=== PATIENT | female | born 2000 | race Caucasian/White ===

== ENCOUNTER 2021-08-21 16:11 | Emergency (ER) | payer OTHER ==
[2021-08-21 16:28] VITALS: BP 127/74; PULSE 95; TEMP 98.1; BMI 34.1
[2021-08-21 19:18] LABS: EPI CELLS 24 /uL (0-25.1); HYALINE CASTS 2 /uL (0-3.1); URINE APPEARANCE Error; URINE BACTERIA 129 /uL (0-1359); URINE BILIRUBIN NEGATIVE (NEGATIVE); URINE COLOR YELLOW; URINE GLUCOSE (UA) NEGATIVE (NEGATIVE); URINE KETONE TRACE (NEGATIVE); URINE LEUK ESTERASE TRACE (NEGATIVE); URINE NITRITE NEGATIVE (NEGATIVE); URINE PROTEIN 1+ (NEGATIVE); URINE RBC 1352 /uL (0-23.9); URINE WBC 40 /uL (0-25.8)
[2021-08-21 19:21] LABS: INR 1.05 (0.83-1.09); PROTHROMBIN TIME (PATIENT) 12.7 SEC (9.7-13.0)
[2021-08-21 19:24] LABS: ACTIVATED PTT 32.6 SECONDS (25.2-36.5)
[2021-08-21 19:39] LABS: CALCIUM 9.1 mg/dL (8.5-10.1)
[2021-08-21 19:40] LABS: ALBUMIN 3.7 g/dl (3.4-5.0); BLOOD UREA NITROGEN 11.6 mg/dL (7-18)
[2021-08-21 19:43] LABS: BASO % 0.7 % (0-2.0); CREATININE 0.7 mg/dL (0.55-1.3); EOS % 0.4 % (0-4.5); HEMATOCRIT 40.8 % (32.4-45.2); HEMOGLOBIN 13.6 GM/dL (10.7-15.3); LYMPH % 13.3 % (8-40); MCH 28.3 pg (25.7-33.7); MCHC 33.4 g/dl (32.0-36.0); MEAN CELL VOLUME 84.7 fl (80-96); MEAN PLT VOLUME 8.8 fl (7.5-11.1); MONO % 4.2 % (3.8-10.2); NEUT % 81.4 % (42.8-82.8); PLATELET COUNT 287 10^3/uL (134-434); RBC 4.82 M/mm3 (3.60-5.2); RDW 13.8 % (11.6-15.6)
[2021-08-21 19:45] LABS: BILIRUBIN,TOTAL 0.7 mg/dL (0.2-1); TOT PROT 7.5 g/dl (6.4-8.2)
[2021-08-21] MEDS ORDERED: IBUPROFEN 600 MG TABLET (FP) PO ONE ×2 (20:30→20:32)
== END 2021-08-21 22:11 | disposition home or self-care (01) ==
LOC: JER 16:11
DX: N94.6 Dysmenorrhea, unspecified (principal)
CPT/HCPCS: 36415; 76830-TC; 80053; 81003; 84703; 85025; 85610; 85730; 86850; 86900; 86901; 99284-25

== ENCOUNTER 2021-10-23 10:26 | Emergency (ER) | payer OTHER ==
[2021-10-23 10:50] VITALS: BP 114/75; PULSE 90; TEMP 98; BMI 34.0
== END 2021-10-23 14:06 | disposition home or self-care (01) ==
LOC: JER 10:26
DX: R05.1 Acute cough (principal); R09.81 Nasal congestion; J06.9 Acute upper respiratory infection, unspecified; Z11.52 Encounter for screening for COVID-19
CPT/HCPCS: 71046-TC-FY; 87651; 87804; 99284-25; C9803; U0003; U0005

== ENCOUNTER 2022-04-05 14:12 | Emergency (ER) | payer OTHER ==
[2022-04-05 14:54] VITALS: BP 101/62; PULSE 110; TEMP 98.2; BMI 36.8
[2022-04-05 16:09] LABS: HCG,QUALITATIVE URINE Positive
[2022-04-05 16:13] LABS: EPI CELLS >36 /uL (0-25.1); HYALINE CASTS 0 /uL (0-3.1); URINE APPEARANCE CLEAR; URINE BACTERIA 1333 /uL (0-1359); URINE BILIRUBIN NEGATIVE (NEGATIVE); URINE COLOR YELLOW; URINE GLUCOSE (UA) NEGATIVE (NEGATIVE); URINE KETONE TRACE (NEGATIVE); URINE LEUK ESTERASE TRACE (NEGATIVE); URINE NITRITE NEGATIVE (NEGATIVE); URINE PROTEIN TRACE (NEGATIVE); URINE RBC 10 /uL (0-23.9); URINE WBC 31 /uL (0-25.8)
[2022-04-05 17:29] LABS: BASO % 0.8 % (0-2.0); HEMATOCRIT 39.5 % (32.4-45.2); HEMOGLOBIN 12.9 GM/dL (10.7-15.3); LYMPH % 15.9 % (8-40); MCH 28.2 pg (25.7-33.7); MCHC 32.8 g/dl (32.0-36.0); MEAN CELL VOLUME 86.2 fl (80-96); MEAN PLT VOLUME 9.2 fl (7.5-11.1); MONO % 6.6 % (3.8-10.2); NEUT % 72.7 % (42.8-82.8); PLATELET COUNT 236 10^3/uL (134-434); RBC 4.58 M/mm3 (3.60-5.2); RDW 14.4 % (11.6-15.6); WHITE BLOOD COUNT 8.7 K/mm3 (4.0-10.0)
[2022-04-05 17:44] LABS: ALBUMIN 3.2 g/dl (3.4-5.0); BLOOD UREA NITROGEN 10.6 mg/dL (7-18); CALCIUM 8.7 mg/dL (8.5-10.1)
[2022-04-05 17:47] LABS: CREATININE 0.6 mg/dL (0.55-1.3)
[2022-04-05 17:49] LABS: BILIRUBIN,TOTAL 0.4 mg/dL (0.2-1); TOT PROT 6.3 g/dl (6.4-8.2)
== END 2022-04-05 19:09 | disposition home or self-care (01) ==
LOC: JER 14:12
DX: O23.91 Unspecified genitourinary tract infection in pregnancy, first trimester (principal); O20.0 Threatened abortion; Z3A.01 Less than 8 weeks gestation of pregnancy
CPT/HCPCS: 36415; 76817-TC; 80053; 81003; 84702; 84703; 85025; 86850; 86900; 86901; 87070; 87086; 87205; 99284-25

== ENCOUNTER 2022-05-16 16:09 | Emergency (ER) | payer OTHER ==
[2022-05-16 16:17] VITALS: BP 113/76; PULSE 90; TEMP 98.6; BMI 36.0
[2022-05-16] MEDS ORDERED: ACETAMINOPHEN 500 MG TABLET (FP) PO ONE (17:03)
[2022-05-16 18:03] LABS: BASO % 0.6 % (0-2.0); EOS % 3.6 % (0-4.5); HEMATOCRIT 39.6 % (32.4-45.2); HEMOGLOBIN 13.8 GM/dL (10.7-15.3); LYMPH % 24.2 % (8-40); MCH 29.3 pg (25.7-33.7); MCHC 34.9 g/dl (32.0-36.0); MEAN CELL VOLUME 83.9 fl (80-96); MEAN PLT VOLUME 8.6 fl (7.5-11.1); MONO % 6.6 % (3.8-10.2); PLATELET COUNT 239 10^3/uL (134-434); RBC 4.72 M/mm3 (3.60-5.2); RDW 14.7 % (11.6-15.6); WHITE BLOOD COUNT 7.5 K/mm3 (4.0-10.0)
[2022-05-16 18:13] LABS: INR 1.1 (0.83-1.09); PROTHROMBIN TIME (PATIENT) 12.7 SEC (9.7-13.0)
[2022-05-16] MEDS ORDERED: ACETAMINOPHEN 500 MG TABLET (FP) ONE (19:19)
[2022-05-16 19:22] LABS: EPI CELLS 16 /uL (0-25.1); HYALINE CASTS 1 /uL (0-3.1); URINE APPEARANCE CLEAR; URINE BACTERIA 17 /uL (0-1359); URINE BILIRUBIN NEGATIVE (NEGATIVE); URINE COLOR RED; URINE GLUCOSE (UA) NEGATIVE (NEGATIVE); URINE KETONE 1+ (NEGATIVE); URINE LEUK ESTERASE TRACE (NEGATIVE); URINE NITRITE NEGATIVE (NEGATIVE); URINE PROTEIN 2+ (NEGATIVE); URINE RBC 5390 /uL (0-23.9); URINE UROBILINOGEN 0.2 mg/dL (0.2-1.0); URINE WBC 28 /uL (0-25.8)
[2022-05-16 19:25] LABS: CALCIUM 9.2 mg/dL (8.5-10.1); CREATININE 0.6 mg/dL (0.55-1.3)
== END 2022-05-16 21:06 | disposition home or self-care (01) ==
LOC: JER 16:09
DX: O20.0 Threatened abortion (principal); Z3A.09 9 weeks gestation of pregnancy
CPT/HCPCS: 36415; 76817-TC; 80048; 81003; 84702; 85025; 85610; 86850; 86900; 86901; 87086; 99284-25

== ENCOUNTER 2022-05-17 00:23 | Observation (INO) | payer OTHER ==
[2022-05-17 00:29] VITALS: TEMP 98.3; BMI 35.9
[2022-05-17 01:34] LABS: BASO % 0.4 % (0-2.0); EOS % 1.4 % (0-4.5); HEMATOCRIT 33.6 % (32.4-45.2); HEMOGLOBIN 11.7 GM/dL (10.7-15.3); LYMPH % 13.8 % (8-40); MCH 29.1 pg (25.7-33.7); MCHC 34.7 g/dl (32.0-36.0); MEAN CELL VOLUME 83.9 fl (80-96); MEAN PLT VOLUME 8.5 fl (7.5-11.1); MONO % 4.7 % (3.8-10.2); NEUT % 79.7 % (42.8-82.8); PLATELET COUNT 256 10^3/uL (134-434); RBC 4.01 M/mm3 (3.60-5.2); RDW 14.5 % (11.6-15.6); WHITE BLOOD COUNT 10.5 K/mm3 (4.0-10.0)
[2022-05-17 01:43] LABS: INR 1.19 (0.83-1.09); PROTHROMBIN TIME (PATIENT) 13.7 SEC (9.7-13.0)
[2022-05-17 01:45] LABS: ACTIVATED PTT 28.9 SECONDS (25.2-36.5)
[2022-05-17] MEDS ORDERED: SODIUM CHLORIDE 0.9% 500 ML INFUS.BAG IV ONE (01:54)
[2022-05-17 01:59] LABS: CALCIUM 8.4 mg/dL (8.5-10.1)
[2022-05-17 02:00] LABS: ALBUMIN 3.2 g/dl (3.4-5.0); BLOOD UREA NITROGEN 10.1 mg/dL (7-18)
[2022-05-17 02:02] LABS: CREATININE 0.7 mg/dL (0.55-1.3)
[2022-05-17 02:04] LABS: BILIRUBIN,TOTAL 0.7 mg/dL (0.2-1)
[2022-05-17 02:44] LABS: BASO % 0.6 % (0-2.0); EOS % 1.1 % (0-4.5); HEMATOCRIT 30.2 % (32.4-45.2); HEMOGLOBIN 10.4 GM/dL (10.7-15.3); LYMPH % 13.7 % (8-40); MCH 29.1 pg (25.7-33.7); MCHC 34.5 g/dl (32.0-36.0); MEAN CELL VOLUME 84.3 fl (80-96); MEAN PLT VOLUME 8.4 fl (7.5-11.1); MONO % 5.5 % (3.8-10.2); NEUT % 79.1 % (42.8-82.8); PLATELET COUNT 213 10^3/uL (134-434); RBC 3.59 M/mm3 (3.60-5.2); RDW 14.5 % (11.6-15.6); WHITE BLOOD COUNT 8.4 K/mm3 (4.0-10.0)
[2022-05-17] MEDS ORDERED: METHYLERGONOVINE MALEATE 0.2 MG/1 ML AMP IM ONE (02:58)
[2022-05-17 05:02] LABS: BASO % 0.5 % (0-2.0); EOS % 0.7 % (0-4.5); HEMATOCRIT 29.3 % (32.4-45.2); HEMOGLOBIN 10.3 GM/dL (10.7-15.3); LYMPH % 18.2 % (8-40); MCH 29.5 pg (25.7-33.7); MCHC 35.3 g/dl (32.0-36.0); MEAN CELL VOLUME 83.8 fl (80-96); MEAN PLT VOLUME 8.8 fl (7.5-11.1); MONO % 4.5 % (3.8-10.2); NEUT % 76.1 % (42.8-82.8); PLATELET COUNT 207 10^3/uL (134-434); RDW 14.4 % (11.6-15.6); WHITE BLOOD COUNT 8.1 K/mm3 (4.0-10.0)
[2022-05-17 05:12] LABS: EPI CELLS 18 /uL (0-25.1); HYALINE CASTS 1 /uL (0-3.1); PH,URINE 5.5 (5.0-8.0); URINE APPEARANCE CLOUDY; URINE BACTERIA 11 /uL (0-1359); URINE BILIRUBIN NEGATIVE (NEGATIVE); URINE COLOR ORANGE; URINE GLUCOSE (UA) NEGATIVE (NEGATIVE); URINE KETONE 1+ (NEGATIVE); URINE LEUK ESTERASE TRACE (NEGATIVE); URINE NITRITE NEGATIVE (NEGATIVE); URINE PROTEIN TRACE (NEGATIVE); URINE RBC 1188 /uL (0-23.9); URINE UROBILINOGEN 0.2 mg/dL (0.2-1.0); URINE WBC 30 /uL (0-25.8)
[2022-05-17] MEDS ORDERED: SODIUM CHLORIDE 1,000 ML IV SCH (07:30)
[2022-05-17] MEDS ORDERED: RHO(D) IMMUNE GLOBULIN 1,500 UNIT DISP.SYRIN IM ONE (07:41)
[2022-05-17] MEDS ORDERED: ACETAMINOPHEN 1000 MG/100 ML BAG IVPB PRN (08:01)
[2022-05-17 09:29] LABS: BASO % 0.6 % (0-2.0); EOS % 1.3 % (0-4.5); HEMATOCRIT 30.2 % (32.4-45.2); HEMOGLOBIN 10.4 GM/dL (10.7-15.3); LYMPH % 20.1 % (8-40); MCH 29.4 pg (25.7-33.7); MCHC 34.4 g/dl (32.0-36.0); MEAN CELL VOLUME 85.6 fl (80-96); MEAN PLT VOLUME 9.4 fl (7.5-11.1); MONO % 5.4 % (3.8-10.2); NEUT % 72.6 % (42.8-82.8); PLATELET COUNT 192 10^3/uL (134-434); RBC 3.53 M/mm3 (3.60-5.2); RDW 14.3 % (11.6-15.6); WHITE BLOOD COUNT 6.8 K/mm3 (4.0-10.0)
[2022-05-17] MEDS ORDERED: ACETAMINOPHEN INJECTION 100 ML IVPB ONE (09:41)
[2022-05-17 15:43] LABS: BASO % 0.6 % (0-2.0); EOS % 2.9 % (0-4.5); HEMATOCRIT 28.3 % (32.4-45.2); HEMOGLOBIN 9.7 GM/dL (10.7-15.3); LYMPH % 31.8 % (8-40); MCHC 34.1 g/dl (32.0-36.0); MEAN PLT VOLUME 8.7 fl (7.5-11.1); MONO % 8.2 % (3.8-10.2); NEUT % 56.5 % (42.8-82.8); PLATELET COUNT 207 10^3/uL (134-434); RBC 3.33 M/mm3 (3.60-5.2); RDW 14.2 % (11.6-15.6); WHITE BLOOD COUNT 6.3 K/mm3 (4.0-10.0)
[2022-05-17 16:26] VITALS: BP 125/63; PULSE 102
== END 2022-05-17 19:40 | disposition left against medical advice (07) ==
LOC: JER 00:23 → UNDOADMOB 05:20 → INTOOBSV 05:20 → JERBED 05:20
PROVIDERS: ADMIT Internal Medicine; ATTEND Internal Medicine
PROC: 3E033NZ Introduction of Analgesics, Hypnotics, Sedatives into Peripheral Vein, Percutaneous Approach (ICD-10-PCS; principal; 2022-05-17)
PROC: 3E023GC Introduction of Other Therapeutic Substance into Muscle, Percutaneous Approach (ICD-10-PCS; 2022-05-17)
PROC: 3E0337Z Introduction of Electrolytic and Water Balance Substance into Peripheral Vein, Percutaneous Approach (ICD-10-PCS; 2022-05-17)
DX: N93.9 Abnormal uterine and vaginal bleeding, unspecified (principal); R42 Dizziness and giddiness; I95.9 Hypotension, unspecified
CPT/HCPCS: 36415; 76830-TC; 80053; 81003; 84484; 84702; 85025; 85610; 85730; 86850; 86900; 86901; 87086; 93005; 93010; 96361; 96372; 96374; 99285-25; C9803-CS; G0378; U0003; U0005

== ENCOUNTER 2025-04-28 13:40 | Inpatient (IN) | payer OTHER ==
[2025-04-28] MEDS: ERYTHROMYCIN INJECTION - 250 MG in SODIUM CHLORIDE 100 ML IVPB SCH (14:00)
[2025-04-28] MEDS: LACTATED RINGERS SOLUTION 1,000 ML/1,000 ML INFUS.BAG IV SCH (14:30)
[2025-04-28] MEDS ORDERED: AMPICILLIN SODIUM 2 GM VIAL ONE (15:05)
[2025-04-28] MEDS: AMPICILLIN - 2 GM in SODIUM CHLORIDE 100 ML IVPB SCH (15:10)
[2025-04-28] MEDS ORDERED: BETAMET ACET/BETAMET NA PH 30 MG/5 ML VIAL ONE (15:19)
[2025-04-28] MEDS: BETAMET ACET/BETAMET NA PH 30 MG/5 ML VIAL IM ONE (15:30)
[2025-04-28 15:33] LABS: INR 1.01 (0.83-1.09)
[2025-04-28 15:36] LABS: ACTIVATED PTT 28.2 SECONDS (25.2-36.5)
[2025-04-28 15:39] LABS: ABSOLUTE IMMATURE GRANULOCYTES 0.02 x10^3/uL (0.0-0.031); BASOPHILS # 0.03 x10^3/uL (0.01-0.08); EOSINOPHIL % 0.7 % (0.7-5.8); EOSINOPHILS # 0.05 x10^3/uL (0.04-0.36); HEMOGLOBIN 13.1 g/dL (11.2-15.7); MCHC 33.6 g/dl (32.2-35.5); MEAN CELL VOLUME 89.7 fl (79.4-94.8); MEAN PLT VOLUME 11.2 fl (9.4-12.3); MONOCYTE # 0.46 x10^3/uL (0.24-0.86); MONOCYTE % 6.7 % (4.7-12.5); PLATELET COUNT 188 x10^3/uL (182-369)
[2025-04-28 15:45] LABS: POTASSIUM 3.8 mmol/L (3.5-5.1)
[2025-04-28 15:46] LABS: CALCIUM 9.3 mg/dL (8.5-10.1)
[2025-04-28 15:47] LABS: BLOOD UREA NITROGEN 6.4 mg/dL (7-18)
[2025-04-28 15:48] VITALS: BP 131/79; PULSE 78; RESP 18; TEMP 98.2; BMI 36.6
[2025-04-28 15:50] LABS: CREATININE 0.4 mg/dL (0.55-1.3)
[2025-04-28] MEDS ORDERED: MAGNESIUM 4GM/H20 - 4 GM/100 ML IVPB IVPB ONE (16:21)
[2025-04-28] MEDS: MAGNESIUM 4GM/H20 - 4 GM/100 ML IVPB IVPB ONE (16:30)
[2025-04-28] MEDS ORDERED: MAGNESIUM SULFATE 20GM/500ML - 20 GM/500 ML INFUS.BAG ONE (16:44)
== END 2025-04-28 17:30 | disposition short-term general hospital (02) | DRG 831 ==
LOC: JDEL 13:40 → JLDR 14:20
PROVIDERS: ADMIT Obstetrics & Gynecology; ATTEND Obstetrics & Gynecology
DX: O30.043 Twin pregnancy, dichorionic/diamniotic, third trimester (principal); O60.03 Preterm labor without delivery, third trimester; O42.913 Preterm premature rupture of membranes, unspecified as to length of time between rupture and onset of labor, third trimester; Z3A.32 32 weeks gestation of pregnancy
CPT/HCPCS: 36415; 80048; 85025; 85610; 85730; 86780; 86850; 86900; 86901; 87081; 87491; 87591